=== PATIENT | female | born 1980 | race Caucasian/White ===

== ENCOUNTER 2019-01-19 09:00 | Outpatient (CLI) | payer BC, SELFPAY ==
[2019-01-20 18:44] LABS: Bermuda Grass IgE <0.35 kU/L; D Farinae IgE <0.35 kU/L; D Pteronyssinus IgE <0.35 kU/L; Epicoccum purpurascens IgE <0.35 kU/L; Penicillium chrysogenum IgE <0.35 kU/L
[2019-01-20 18:49] LABS: Cat Epithelium IgE <0.35 kU/L; Cladosporium IgE <0.35 kU/L; Cocklebur IgE <0.35 kU/L; Dog Dander IgE <0.35 kU/L; Lamb's Quarter IgE <0.35 kU/L; Short Ragweed IgE <0.35 kU/L; Timothy Grass IgE 0.65 kU/L; Wormwood IgE <0.35 kU/L
[2019-01-20 19:55] LABS: Alternaria Tenuis IgE <0.35 kU/L; Aspergillus Fumigatus IgE <0.35 kU/L; Cockroach IgE <0.35 kU/L; Elm IgE <0.35 kU/L; Giant Ragweed IgE <0.35 kU/L; Oak IgE 4.62 kU/L; Silver Birch IgE 5.52 kU/L
[2019-01-23 11:28] LABS: Cottonwood IgE <0.35 kU/L; Eastern Sycamore IgE <0.35 kU/L; Red Sorrel IgE <0.35 kU/L; Rough Pigweed IgE <0.35 kU/L; Stemphyllium IgE <0.35 kU/L; Walnut Tree IgE <0.35 kU/L
[2019-01-23 16:03] LABS: CLASS 0; Cedar Red IgE <0.10 kU/L (<0.35); Fusarium oxysporum/vasinfectum <0.35 kU/L (<0.35); Rhodotorula IgE <0.35 kU/L (<0.35)
== END 2019-01-19 09:20 ==
PROVIDERS: PCP Family Medicine; Visit Provider Otolaryngology Otolaryngology/Facial Plastic Surgery
DX: J30.9 Allergic rhinitis, unspecified (principal)
CPT/HCPCS: 36415; 86003

== ENCOUNTER 2019-01-28 16:31 | Outpatient (CLI) | payer BC, SELFPAY ==
--- NOTE | 2019-01-28 16:22 | DI.RAD_ITS ---
EXAM: XR CHEST 2V PA LATERAL INDICATION: COUGH R05. COMPARISON: No exams were available for comparison TECHNIQUE: 2D digital imaging was performed. FINDINGS: Cardiac and mediastinal contours have a normal appearance. The lungs are well inflated and clear. N o infiltrate or effusion is seen. IMPRESSION: Negative chest x-ray.
== END 2019-01-28 16:51 ==
PROVIDERS: PCP Family Medicine; Visit Provider Nurse Practitioner
DX: R05 Cough (principal)
CPT/HCPCS: 71046